=== PATIENT | female | born 1955 | race Caucasian/White ===

== ENCOUNTER 2016-07-06 02:36 | Observation (INO) | payer BC ==
[~2016-07-06] VITALS: Ht 149.9 cm; Wt 58.6 kg
[2016-07-06 03:39] LABS: EOSINOPHIL (%) 3.2 % (0-5); EOSINOPHIL COUNT 0.2 K/uL (0-0.3); HEMATOCRIT 38.4 % (36.0-46.0); IMMATURE GRANULOCYTE (%) 0.1 % (0.0-0.7); IMMATURE GRANULOCYTE COUNT 0.1 K/uL; LYMPHOCYTE COUNT 2.2 K/uL (1.0-2.8); MCH 32.3 PG (29.0-34.0); MCHC 34.1 G/DL (30.0-36.0); MCV 94.8 FL (83-99); MEAN PLAT.VOLUME 10.8 uM^3 (9.5-12.4); MONOCYTE (%) 8.2 % (3-12); MONOCYTE COUNT 0.6 K/uL (0-0.8); NEUTROPHIL COUNT 4.3 K/uL (1.8-6.4); PLATELET COUNT 158 K/uL (156-360); RBC DIS.WIDTH-CV 12.5 % (11.8-14.6); RBC DIS.WIDTH-SD 42.1 % (39-53); RED BLOOD COUNT 4.05 M/uL (3.80-5.20); WHITE BLOOD COUNT 7.5 K/uL (4.1-10.2)
[2016-07-06 03:47] LABS: CHLORIDE 108 mEq/L (99-109); POTASSIUM 3.7 mEq/L (3.7-5.4); SODIUM 140 mEq/L (136-147)
[2016-07-06 03:49] LABS: GLUCOSE 91 mg/dL (70-99)
[2016-07-06 03:51] LABS: ANION GAP 8 MEQ/L (2-14); TOTAL BILIRUBIN 0.3 mg/dL (0.0-1.0)
[2016-07-06 03:53] LABS: ALKALINE PHOSPHATASE 86 IU/L (3-129); GFR ESTIMATE (CALCULATED) > 59 mL/min/
[2016-07-06 03:54] LABS: UREA NITROGEN (BUN) 13 mg/dL (9-23)
[2016-07-06 03:59] LABS: TROP-I INTERPRETATION NEGATIVE; TROPONIN-I < 0.01 ng/mL (0.0-0.30)
[2016-07-06 04:49] LABS: HDL CHOLESTEROL 45 MG/DL (Desirable>=50); LDL CHOLESTEROL 70 mg/dL (Desirable<100); NON-HDL CHOLESTEROL 86 mg/dL (Desirable<160); SAMPLE HEMOLYSIS CHECK 0; SAMPLE ICTERIC CHECK 0; SAMPLE LIPEMIA CHECK 0; TOTAL CHOLESTEROL 131 mg/dL (Desirable<200); TRIGLYCERIDES 79 MG/DL (Normal: <150)
[2016-07-06] MEDS ORDERED: LYRICA50 MG PO (05:32)
[2016-07-06] MEDS ORDERED: LORCET HD 10-31 EACH PO (05:32)
[2016-07-06] MEDS ORDERED: SOMA350 MG PO (05:33)
[2016-07-06] MEDS ORDERED: ERGOCALCIF50000 UNIT PO (05:33)
[2016-07-06] MEDS ORDERED: PROZAC20 MG PO (05:34)
[2016-07-06] MEDS ORDERED: AMBIEN10 MG PO (05:34)
[2016-07-06] MEDS ORDERED: TOPAMAX50 MG PO (05:35)
[2016-07-06] MEDS ORDERED: NEURONTIN300 MG PO (05:36)
[2016-07-06] MEDS ORDERED: ESOMEPRAZOLE MA40 MG PO (05:36)
[2016-07-06] MEDS ORDERED: AQUAPHOR OINTM105 GM TP (05:37)
[2016-07-06 07:28] LABS: Estimated Average Glucose 97 mg/dL (70-123)
[2016-07-06 08:25] LABS: BILIRUBIN NEGATIVE; BLOOD NEGATIVE; COLOR YELLOW ((YELLOW)); GLUCOSE (STRIP) NEGATIVE; KETONES NEGATIVE; LEUKOCYTES NEGATIVE; NITRITE NEGATIVE; PH, URINE 6.5 (5-8); PROTEIN (STRIP) NEGATIVE; SPECIFIC GRAVITY 1.013 (1.000-1.030)
[2016-07-06 08:27] LABS: ADD MIUA? NO; UCUL ADDED? NO
[2016-07-06] MEDS ORDERED: CYANOCOBAL1000 MCG/2 IM (08:50)
[2016-07-06 10:37] LABS: HEMATOCRIT 38.7 % (36.0-46.0); MCH 32.7 PG (29.0-34.0); MCHC 34.4 G/DL (30.0-36.0); MCV 95.1 FL (83-99); MEAN PLAT.VOLUME 11.1 uM^3 (9.5-12.4); PLATELET COUNT 149 K/uL (156-360); RBC DIS.WIDTH-CV 12.6 % (11.8-14.6); RBC DIS.WIDTH-SD 42.5 % (39-53); RED BLOOD COUNT 4.07 M/uL (3.80-5.20); WHITE BLOOD COUNT 7.4 K/uL (4.1-10.2)
[2016-07-06 17:29] VITALS: BP 120/71
== END 2016-07-06 18:35 | disposition home or self-care (01) ==
LOC: EME 02:36 → EDOF 05:01
PROVIDERS: Emergency Medicine; Internal Medicine
DX: I67.9 Cerebrovascular disease, unspecified (principal); R20.0 Anesthesia of skin; R56.9 Unspecified convulsions; F32.9 Major depressive disorder, single episode, unspecified; E78.5 Hyperlipidemia, unspecified; F17.200 Nicotine dependence, unspecified, uncomplicated; G58.9 Mononeuropathy, unspecified; Z91.09 Other allergy status, other than to drugs and biological substances; Z91.040 Latex allergy status
CPT/HCPCS: 70450; 70551; 71020; 80053; 80061; 81003; 83036; 84484; 85025; 85027; 92610 GN; 93005; 93880; 99281; 99285; G0378; J1644

== ENCOUNTER 2016-07-21 08:06 | Emergency (ER) | payer BC ==
[~2016-07-21] VITALS: Ht 149.9 cm; Wt 57.1 kg
[~2016-07-21 08:06] MED LIST: AMBIEN10 MG PO; AQUAPHOR OINTM105 GM TP; CYANOCOBAL1000 MCG/2 IM; ERGOCALCIF50000 UNIT PO; ESOMEPRAZOLE MA40 MG PO; LORCET HD 10-31 EACH PO; LYRICA50 MG PO; NEURONTIN300 MG PO; PROZAC20 MG PO; SOMA350 MG PO; TOPAMAX50 MG PO
[2016-07-21 08:34] LABS: ADD MIUA? YES; BILIRUBIN NEGATIVE; BLOOD SMALL; COLOR AMBER ((YELLOW)); GLUCOSE (STRIP) NEGATIVE; KETONES NEGATIVE; LEUKOCYTES NEGATIVE; NITRITE POSITIVE; PROTEIN (STRIP) 30; SPECIFIC GRAVITY 1.018 (1.000-1.030)
[2016-07-21 09:00] LABS: HEMATOCRIT 41.1 % (36.0-46.0); MCH 32.3 PG (29.0-34.0); MCHC 34.5 G/DL (30.0-36.0); MCV 93.6 FL (83-99); MEAN PLAT.VOLUME 10.7 uM^3 (9.5-12.4); PLATELET COUNT 194 K/uL (156-360); RBC DIS.WIDTH-CV 13.1 % (11.8-14.6); RBC DIS.WIDTH-SD 43.5 % (39-53); RED BLOOD COUNT 4.39 M/uL (3.80-5.20); WHITE BLOOD COUNT 4.8 K/uL (4.1-10.2)
[2016-07-21 09:07] LABS: CHLORIDE 112 mEq/L (99-109); POTASSIUM 3.4 mEq/L (3.7-5.4); SODIUM 144 mEq/L (136-147)
[2016-07-21 09:09] LABS: GLUCOSE 88 mg/dL (70-99)
[2016-07-21 09:10] LABS: ANION GAP 8 MEQ/L (2-14)
[2016-07-21 09:11] LABS: BACTERIA RARE /HPF; CALCIUM OXALATE CRYSTALS 4+ /HPF; EPITHELIAL CELLS 4+ /HPF; MUCUS 1+ /LPF; RED BLOOD CELLS 20-30 /HPF (0-5); UCUL ADDED? NO; WHITE BLOOD CELLS 0-5 /HPF (0-5)
[2016-07-21 09:11] LABS: TOTAL BILIRUBIN 0.6 mg/dL (0.0-1.0)
[2016-07-21 09:13] LABS: ALKALINE PHOSPHATASE 74 IU/L (3-129); GFR ESTIMATE (CALCULATED) > 59 mL/min/
[2016-07-21 09:14] LABS: UREA NITROGEN (BUN) 8 mg/dL (9-23)
[2016-07-21 09:16] LABS: LIPASE 20 U/L (1.0-51.0)
[2016-07-21] MEDS ORDERED: ZOFRAN ODT4 MG PO (10:28)
[2016-07-21] MEDS ORDERED: PYRIDIUM200 MG PO (10:28)
[2016-07-21] MEDS ORDERED: KEFLEX500 MG PO (10:28)
[2016-07-21 11:32] VITALS: BP 108/58
== END 2016-07-21 11:34 | disposition home or self-care (01) ==
LOC: EME 08:06
PROVIDERS: Nurse Practitioner Family
DX: N12 Tubulo-interstitial nephritis, not specified as acute or chronic (principal); N39.0 Urinary tract infection, site not specified; Z98.84 Bariatric surgery status; Z87.442 Personal history of urinary calculi
CPT/HCPCS: 74176; 80053; 81003; 83605; 83690; 85027; 99281; 99285; J0696; J2270; J2405; J7030; J7050

== ENCOUNTER 2016-09-20 17:04 | Emergency (ER) | payer BC ==
[~2016-09-20] VITALS: Ht 149.9 cm; Wt 56.0 kg
[~2016-09-20 17:04] MED LIST changes: +KEFLEX500 MG PO; +PYRIDIUM200 MG PO; +ZOFRAN ODT4 MG PO
[2016-09-20 20:59] VITALS: BP 110/51
== END 2016-09-20 21:00 | disposition home or self-care (01) ==
LOC: EME 17:04
DX: T50.901A Poisoning by unspecified drugs, medicaments and biological substances, accidental (unintentional), initial encounter (principal); R53.83 Other fatigue; F17.200 Nicotine dependence, unspecified, uncomplicated
CPT/HCPCS: 99281; 99284

== ENCOUNTER 2016-11-22 16:41 | Emergency (ER) | payer BC ==
[~2016-11-22] VITALS: Ht 149.9 cm; Wt 51.5 kg
[2016-11-22] MEDS ORDERED: PERCOCET 5/31 TABLET PO (17:53)
[2016-11-22 18:31] VITALS: BP 129/81
== END 2016-11-22 18:32 | disposition home or self-care (01) ==
LOC: EME 16:41
DX: S42.201A Unspecified fracture of upper end of right humerus, initial encounter for closed fracture (principal); S00.93XA Contusion of unspecified part of head, initial encounter; W06.XXXA Fall from bed, initial encounter; Z91.040 Latex allergy status
CPT/HCPCS: 73060; 99281; 99283; J3010

== ENCOUNTER 2017-02-25 12:41 | Emergency (ER) | payer OTHER, BC ==
[~2017-02-25] VITALS: Ht 149.9 cm; Wt 53.1 kg
[~2017-02-25 12:41] MED LIST changes: +PERCOCET 5/31 TABLET PO
[2017-02-25 13:55] LABS: HEMATOCRIT 38.4 % (36.0-46.0); MCH 32.5 PG (29.0-34.0); MCHC 33.9 G/DL (30.0-36.0); PLATELET COUNT 165 K/uL (156-360); RBC DIS.WIDTH-CV 11.9 % (11.8-14.6); RBC DIS.WIDTH-SD 41.7 % (39-53); WHITE BLOOD COUNT 4.8 K/uL (4.1-10.2)
[2017-02-25 14:05] LABS: CHLORIDE 110 mEq/L (99-109); POTASSIUM 3.9 mEq/L (3.7-5.4); SODIUM 139 mEq/L (136-147)
[2017-02-25 14:07] LABS: GLUCOSE 80 mg/dL (70-99)
[2017-02-25 14:08] LABS: ANION GAP 6 MEQ/L (2-14)
[2017-02-25 14:09] LABS: TOTAL BILIRUBIN 0.3 mg/dL (0.0-1.0)
[2017-02-25 14:10] LABS: ALKALINE PHOSPHATASE 95 IU/L (3-129)
[2017-02-25 14:11] LABS: GFR ESTIMATE (CALCULATED) > 59 mL/min/
[2017-02-25 14:12] LABS: UREA NITROGEN (BUN) 10 mg/dL (9-23)
[2017-02-25 14:14] LABS: LIPASE 9 U/L (1.0-51.0)
[2017-02-25 15:44] LABS: ADD MIUA? YES; BILIRUBIN NEGATIVE; BLOOD SMALL; COLOR YELLOW ((YELLOW)); GLUCOSE (STRIP) NEGATIVE; KETONES NEGATIVE; LEUKOCYTES NEGATIVE; NITRITE NEGATIVE; PROTEIN (STRIP) NEGATIVE; SPECIFIC GRAVITY 1.014 (1.000-1.030); UROBILINOGEN 0.2 MG/DL (0.2-1.0)
[2017-02-25 15:46] LABS: BACTERIA NONE SEEN /HPF; EPITHELIAL CELLS RARE /HPF; HYALINE CASTS 0-5 /LPF; MUCUS TRACE /LPF; RED BLOOD CELLS 0-5 /HPF (0-5); UCUL ADDED? NO; WHITE BLOOD CELLS 0-5 /HPF (0-5)
[2017-02-25 17:43] VITALS: BP 133/68
== END 2017-02-25 17:45 | disposition home or self-care (01) ==
LOC: EME 12:41
PROVIDERS: Emergency Medicine
DX: S16.1XXA Strain of muscle, fascia and tendon at neck level, initial encounter (principal); S39.012A Strain of muscle, fascia and tendon of lower back, initial encounter; V49.40XA Driver injured in collision with unspecified motor vehicles in traffic accident, initial encounter; F32.9 Major depressive disorder, single episode, unspecified; F17.200 Nicotine dependence, unspecified, uncomplicated; Z86.73 Personal history of transient ischemic attack (TIA), and cerebral infarction without residual deficits; Z91.040 Latex allergy status
CPT/HCPCS: 72040; 72100; 80053; 81003; 83690; 85027; 99281; 99284

== ENCOUNTER 2018-01-06 11:36 | Inpatient (IN) | payer BC ==
[~2018-01-06] VITALS: Ht 149.9 cm; Wt 48.2 kg
[~2018-01-06 11:36] MED LIST changes: -ESOMEPRAZOLE MA40 MG PO; +OMEPRAZOLE40 M1 PO
[2018-01-06 12:23] LABS: HEMATOCRIT 36.2 % (36.0-46.0); HEMOGLOBIN 11.7 G/DL (11.9-15.5); MCH 28.9 PG (29.0-34.0); MCHC 32.3 G/DL (30.0-36.0); MCV 89.4 FL (83-99); PLATELET COUNT 194 K/uL (156-360); RBC DIS.WIDTH-CV 13.3 % (11.8-14.6); RBC DIS.WIDTH-SD 43.8 % (39-53); RED BLOOD COUNT 4.05 M/uL (3.80-5.20); WHITE BLOOD COUNT 3.7 K/uL (4.1-10.2)
[2018-01-06 12:35] LABS: ALBUMIN 3.9 g/dL (3.2-4.8); CHLORIDE 108 mEq/L (99-109); POTASSIUM 3.3 mEq/L (3.7-5.4)
[2018-01-06 12:36] LABS: SODIUM 140 mEq/L (136-147)
[2018-01-06 12:38] LABS: GLUCOSE 86 mg/dL (70-99); TOTAL PROTEIN 6.3 g/dL (6.4-8.3)
[2018-01-06 12:40] LABS: TOTAL BILIRUBIN 0.3 mg/dL (0.0-1.0)
[2018-01-06 12:41] LABS: ALKALINE PHOSPHATASE 132 IU/L (3-129); SERUM ETHYL ALCOHOL < 10 mg/dL
[2018-01-06 12:42] LABS: CREATININE 0.7 mg/dL (0.6-1.3); GFR ESTIMATE (CALCULATED) > 59 mL/min/
[2018-01-06 12:43] LABS: AST (GOT) 12 IU/L (2-34); UREA NITROGEN (BUN) 5 mg/dL (9-23)
[2018-01-06 12:44] LABS: ALT (GPT) 10 IU/L (3-49)
[2018-01-06 13:25] LABS: APPEARANCE CLEAR ((CLEAR)); BILIRUBIN NEGATIVE; BLOOD NEGATIVE; COLOR YELLOW ((YELLOW)); GLUCOSE (STRIP) NEGATIVE; KETONES 5; LEUKOCYTES NEGATIVE; NITRITE NEGATIVE; PROTEIN (STRIP) NEGATIVE; SPECIFIC GRAVITY 1.015 (1.000-1.030); UROBILINOGEN 0.2 MG/DL (0.2-1.0)
[2018-01-06 13:34] LABS: AMPHETAMINE NEGATIVE (500 ng/mL); BARBITURATES NEGATIVE (200 ng/mL); BENZODIAZEPINES PRESUMPTIVE POSITIVE (150 ng/mL); BUPRENORPHINE NEGATIVE (10 ng/mL); COCAINE NEGATIVE (150 ng/mL); METHADONE NEGATIVE (200 ng/mL); METHAMPHETAMINE NEGATIVE (500 ng/mL); OPIATES (MORPHINE) NEGATIVE (100 ng/mL); OXYCODONE NEGATIVE (100 ng/mL); PHENCYCLIDINE NEGATIVE (25 ng/mL); PROPOXYPHENE NEGATIVE (300 ng/mL); THC CANNABINOIDS PRESUMPTIVE POSITIVE (50 ng/mL); TRICYCLIC ANTIDEPRESSANTS NEGATIVE (300 ng/mL)
[2018-01-06 14:34] LABS: BENZODIAZEPINES, URINE SCREEN Negative (200 ng/mL)
[2018-01-06] MEDS ORDERED: KLONOPIN0.5 M1 PO (18:04)
[2018-01-06] MEDS ORDERED: MOTRIN800 MG PO (18:06)
[2018-01-06] MEDS ORDERED: MAXALT10 MG PO (18:06)
[2018-01-06] MEDS ORDERED: SYMBICORT60 INHALAT IH (18:06)
[2018-01-06 18:51] VITALS: BP 140/76
[2018-01-07 09:11] VITALS: BP 129/63
[2018-01-07 15:10] VITALS: BP 122/70
[2018-01-08 07:34] VITALS: BP 118/56
[2018-01-08 15:16] VITALS: BP 112/57
[2018-01-09 08:07] VITALS: BP 91/43
[2018-01-09 16:26] VITALS: BP 103/48
[2018-01-10 08:13] VITALS: BP 108/53
[2018-01-10 16:31] VITALS: BP 102/50
[2018-01-11 08:08] VITALS: BP 90/41
[2018-01-11] MEDS ORDERED: GABAPENTIN400 MG PO (10:05)
[2018-01-11] MEDS ORDERED: TRAZODONE HCL50 MG PO (10:05)
[2018-01-11] MEDS ORDERED: FLUOXETINE HCL20 MG PO (10:05)
== END 2018-01-11 12:05 | disposition home or self-care (01) | DRG 885 ==
LOC: EME 11:36 → 1WEST 17:11 → EDOF 17:11 → ENRESERV 17:40 → 1WEST 18:47
PROVIDERS: Emergency Medicine
DX: F33.9 Major depressive disorder, recurrent, unspecified (principal); F11.20 Opioid dependence, uncomplicated; R45.851 Suicidal ideations; M54.9 Dorsalgia, unspecified; R56.9 Unspecified convulsions; G89.29 Other chronic pain; Z91.040 Latex allergy status; Z91.048 Other nonmedicinal substance allergy status; F41.9 Anxiety disorder, unspecified; G47.00 Insomnia, unspecified
CPT/HCPCS: 80053; 81003; 84999; 85027; 90837; 93005; 94640; 97150 GO; 97166 GO; 99281; 99285; G0480; J7030